=== PATIENT | male | born 2000 | race Caucasian/White ===

== ENCOUNTER 2019-02-09 22:35 | Emergency (ER) | payer OTHER ==
[2019-02-09] MEDS ORDERED: Lidocaine 1% 20 ML MDV ONE (22:43)
[2019-02-09] MEDS ORDERED: Bupivacaine 0.5% 10 ML VIAL ONE (22:43)
--- NOTE | 2019-02-09 23:06 | RAD ---
Exam:Right fourth digit 3 views HISTORY: Pain. Injury. COMPARISON: None FINDINGS: Subluxation of the fourth digit at the proximal interphalangeal joint space. Postreduction images are recommended. IMPRESSION: Subluxation. Postreduction images are recommended
== END 2019-02-09 23:13 | disposition home or self-care (01) ==
LOC: SCSER 22:35
DX: S63.284A Dislocation of proximal interphalangeal joint of right ring finger, initial encounter (principal); W18.30XA Fall on same level, unspecified, initial encounter
CPT/HCPCS: 26770; J2001; J3490